=== PATIENT | female | born 1955 | race Caucasian/White ===

== ENCOUNTER 2020-11-30 15:10 | Outpatient (CLI) | payer OTHER, SELFPAY ==
--- NOTE | 2020-11-30 15:30 | MM_ITS ---
WS: [id number] BILATERAL SCREENING DIGITAL MAMMOGRAM WITH CAD HISTORY: Z12.39 - Encounter for other screening for malignant neoplasm... COMPARISON: None available. Bilateral CC and MLO views submitted. Computer aided detection analyzed. Breast composition: There are scattered areas of fibroglandular density. No suspicious masses, microc alcifications or architectural distortion. Benign calcification lateral LEFT breast. MM/[place] [id number] IMPRESSION: BI-RADS: 2-Benign FOLLOW UP: 1 Year Follow-up
== END 2020-11-30 15:11 | disposition home or self-care (01) ==
LOC: RADSHAW 15:13
PROVIDERS: Family Provider Physician Assistant Medical; PCP Nurse Practitioner Family; Visit Provider Nurse Practitioner Family
DX: Z12.31 Encounter for screening mammogram for malignant neoplasm of breast (principal)
CPT/HCPCS: 77067

== ENCOUNTER → 2023-04-21 09:30 | Outpatient (BNVA) | payer OTHER, SELFPAY | PROVIDERS: Family Provider Physician Assistant Medical; Visit Provider Nurse Practitioner Family | DX: N81.9 Female genital prolapse, unspecified (principal); R32 Unspecified urinary incontinence; Z13.6 Encounter for screening for cardiovascular disorders; Z79.899 Other long term (current) drug therapy; E55.9 Vitamin D deficiency, unspecified | CPT/HCPCS: 80053; 80061; 81003; 82306; 83036; 84443; 85025; 87086 ==

== ENCOUNTER → 2023-07-04 11:11 | Outpatient (BNVA) | payer OTHER, SELFPAY | PROVIDERS: Family Provider Physician Assistant Medical; PCP Nurse Practitioner Family; Visit Provider Nurse Practitioner Family | DX: J18.9 Pneumonia, unspecified organism (principal) | CPT/HCPCS: 71046 ==

== ENCOUNTER 2023-08-07 10:50 | Outpatient (CLI) | payer OTHER, SELFPAY | END 2023-08-07 10:51 | disposition home or self-care (01) | PROVIDERS: PCP Nurse Practitioner Family; Visit Provider Nurse Practitioner Family | DX: J44.9 Chronic obstructive pulmonary disease, unspecified (principal); F17.210 Nicotine dependence, cigarettes, uncomplicated; R94.2 Abnormal results of pulmonary function studies | CPT/HCPCS: 94010; 94726; 94729 ==

== ENCOUNTER 2023-08-14 11:50 | Outpatient (CLI) | payer OTHER, MEDICARE, SELFPAY ==
--- NOTE | 2023-08-14 12:45 | CT_ITS ---
WS: [id number] LDCT LUNG CANCER SCREENING TECHNIQUE: Noncontrast CT of the chest with coronal and sagittal reformatted images. CLINICAL INFORMATION: Cancer Screen COMPARISON: None. DLP: 67.41 mGy.cm DIvol: Mean CTDIvol: 1.40 (mGy) All CT scans at [facility] use at least one of these dose optimization techniques: automat ed exposure control; mA and/or kV adjustment per patient size (includes targeted exams where dose is matched to clinical indication); or iterative reconstruction. FINDINGS: Normal caliber thoracic aorta. Aortic calcification. Mild coronary calcification. Adrenal glands are normal. Normal GE junction. Moderate thoracic kyphosis. Hypertrophic changes thora cic spine. Suspicious spiculated mass RIGHT middle lobe abutting the fissure. Consolidative mass pasquale ures approximately 3.3 x 1.9 cm. Surrounding irregular nodular and lobulated margins. Recommend furth er evaluation with bronchoscopy. Additional areas of nodularity extend along the RIGHT hilum. Thicken ing of the adjacent fissure. Masslike RIGHT hilar lymphadenopathy. Additional indeterminate nodule superior segment LEFT lower lobe measuring 6.5 mm. A few tiny subpleu ral nodules LEFT upper lobe. Slight hazy groundglass opacity RIGHT lower lobe laterally is nonspecifi c. Fibrosis RIGHT lower lobe medially. Additional irregular nodule RIGHT upper lobe along the fissure measuring 7 mm. IMPRESSION: Irregular spiculated mass RIGHT middle lobe with surrounding nodularity highly suspicious for neoplasm. Recommend further evaluation with bronchoscopy. Masslike RIGHT hilar lymphadenopathy w ith additional nodularity about the RIGHT hilum. Also consider PET/CT in addition to bronchoscopy. CT/CT lung screening [id number] LUNG-RADS: 4XS-Suspicious with Significant Findings FOLLOW UP: See Report
== END 2023-08-14 11:51 | disposition home or self-care (01) ==
LOC: RAD 11:51
PROVIDERS: PCP Nurse Practitioner Family; Visit Provider Internal Medicine Pulmonary Disease
DX: Z12.2 Encounter for screening for malignant neoplasm of respiratory organs (principal); R91.8 Other nonspecific abnormal finding of lung field; R59.0 Localized enlarged lymph nodes; F17.210 Nicotine dependence, cigarettes, uncomplicated
CPT/HCPCS: 71271

== ENCOUNTER 2023-09-30 12:08 | Outpatient (CLI) | payer OTHER, SELFPAY ==
--- NOTE | 2023-09-30 13:00 | PETR_ITS ---
PROCEDURE INFORMATION: Exam: PET/CT Skull Base to Mid-thigh Exam date and time: 09/30/2023 1:34 PM Age: 68 years old Clinical indication: Abnormal findings on CT chest lung cancer screening on 08/14/2023; Irregular spiculated mass right middle lobe with surrounding nodularity highly. Suspicious for neoplasm. Recommend further evaluation with bronchoscopy. Masslike right hilar. Lymphadenopathy with additional nodularity about the right hilum. Also consider pet/ct in addition. LABS AND CLINICAL REPORTS: Glucose: 87 mg/dl Treatment strategy for malignancy (PET staging): Initial Staging (PI) TECHNIQUE: Imaging protocol: Following at least four-hour fasting and following the injection of radiopharmaceutical, low dose CT images were obtained. Then, PET images were obtained. Attenuation corrected images were constructed using the CT scan. Fused images of PET and CT were reviewed. The standardized uptake values (SUV) reported below are maximum values within a region of interest, expressed in gm/ml. Exam includes orbital meatal line to mid-thigh. Radiopharmaceutical: 14.84 mCi F-18 FDG (Fluorodeoxyglucose), IV. Time of imaging post radiopharmaceutical administration: 1 hour Injection site: Right hand COMPARISON: CT lung cancer screening 08/14/2023 FINDINGS: Brain: Visualized brain has normal physiologic uptake. Pharynx: No abnormal uptake. Larynx: No abnormal uptake. Lungs, pleura and trachea: FDG avid opacity in the right middle lobe measures about 3 x 2 cm/7.2 SUV. A cluster of small perihilar nodules in the more central location in the right middle lobe measure up to 0.7 cm in thickness with the highest uptake of 2.8 SUV. There is small FDG avid nodule in the right upper lobe on axial image 74 measuring 0.6 cm/3.1 SUV. 0.5 cm nodule in the superior segment of the left lower lobe on axial image 67 shows low-grade uptake of 1 SUV. No pleural effusion. Heart: Normal physiologic uptake. There is no cardiomegaly. Mild coronary artery calcification is present. There is no pericardial effusion. Mediastinal space: No abnormal uptake. Liver: No abnormal uptake. Gallbladder and bile ducts: No abnormal uptake. Pancreas: No abnormal uptake. Spleen: No abnormal uptake. No splenomegaly. Adrenal glands: No abnormal uptake. No nodules. Kidneys and ureters: Normal physiologic uptake. No hydronephrosis. Stomach and bowel: Increased uptake (up to 7 SUV) in the distal gastric body with no corresponding CT abnormality is indeterminate, may be benign. No abnormal uptake in the bowel. Intraperitoneal and retroperitoneal spaces: No abnormal uptake. No ascites. Urinary bladder: Normal physiologic uptake. Reproductive: No abnormal uptake. The uterus is absent post surgically. Vasculature: No abnormal uptake. No aortic aneurysm. Lymph nodes: No abnormal uptake. No lymphadenopathy in the head, neck, chest, abdomen, pelvis, and extremities. Bones/joints: No abnormal uptake in the visualized axial and appendicular skeleton. Mild grade 1 degenerative anterolisthesis of L4 associated with L4-L5 facet arthropathy. Soft tissues: No abnormal uptake in the visualized head, neck, chest, abdomen, pelvis, and extremities. PET/PET [facility] INITIAL [id number] IMPRESSION: FDG avid findings in the right lung concerning for malignancy including about 3 x 2 cm lesion in the right middle lobe with uptake of 7.2 SUV, a few perihilar right middle lobe subcentimeter lung nodules with low-grade uptake of 2.8 SUV, and a separate 0.6 cm right upper lobe nodule with uptake of 3.1 SUV. No abnormal uptake in the right hilum. Non-specific non masslike linear area of increased uptake in the distal gastric body with no corresponding CT abnormality. Otherwise no abnormal FDG uptake outside of the chest.
== END 2023-09-30 12:09 | disposition home or self-care (01) ==
LOC: RAD 12:09
PROVIDERS: PCP Nurse Practitioner Family; Visit Provider Internal Medicine Pulmonary Disease
DX: R93.89 Abnormal findings on diagnostic imaging of other specified body structures (principal)
CPT/HCPCS: 78815; A9552

== ENCOUNTER 2023-10-21 07:30 | Day surgery (SDC) | payer OTHER, SELFPAY ==
[2023-10-21] VITALS (13 sets, daily range): BP systolic 137–208; BP diastolic 56–107; PULSE 68–110; RESP 16–21; TEMP 36.1–36.4; O2SAT 92–98; BMI 32.1
--- NOTE | 2023-10-21 07:41 | CT_ITS ---
WS: [id number] CT chest ION (PULM ONLY) [id number] HISTORY: for bronchoscopy biopsies TECHNIQUE: Axial imaging performed through the thorax.. All CT scans at [facility] use at [facility] one of these dose optimization techniques: automated exposure control; mA and/or kV adjustment per patient size (includes targeted exams where dose is matched to clinical indication); or iterative re construction. CONTRAST: None. DLP: 407.91 mGy COMPARISON: 08/14/2023, PET/CT 09/30/2023 High resolution imaging during inspiration prior to navigational bronchoscopy. Reidentified is a spic ulated mass in the RIGHT middle lobe with tethering and pleural tagging extending towards the hilum. Mild RIGHT hilar bronchial wall thickening. No change in the slightly spiculated nodule RIGHT upper l obe and superior segment LEFT lower lobe. CT/CT chest ION (PULM ONLY) [id number] IMPRESSION: Imaging provided for navigational bronchoscopy.
--- NOTE | 2023-10-21 08:06 | P.ANESASSM_ITS ---
Pre-Anesthetic Assessment Height/Weight: Height 1.57 m Operation Date: 10/21/23 09:00 Proposed Procedures p Ion Robotic Assisted Bronchoscopy ION 56458, 46159, 93257, 66758, 41376, 37452, 73496, 12597, 79036, 92135, 24364, 48631, 91967, 00126N34.8(Not Applicable) - Velasquez Brown MD s Ebus(Not Applicable) - Velasquez Brown MD Social Tobacco and No alcohol Exam alert, oriented x 3, clear to auscultation bilaterally and regular rate & rhythm Airway Submandibular: within normal limits Cervical ROM: within normal limits Mallampati: Class II Pulmonary Chronic Obstructive Pulmonary Disease, Cough and Exertional Dyspnea Anesthetic Plan ASA status: 3 Anesthesia: General Medications/Allergies Home Medications Medication Instructions Recorded Confirmed Last Taken Type albuterol sulfate 1.25 mg/3 mL 1.25 mg (3 mL) inhalation Q6H PRN 06/10/23 10/17/23 10/16/23 Rx solution for nebulization bronchospasm 30 days #90 mL albuterol sulfate 90 mcg/actuation 2 puff inhalation Q6H PRN 10/08/23 10/17/23 10/16/23 History aerosol inhaler Shortness Of Breath varenicline 0.5 mg (11)-1 mg (42) See Rx Instructions PO PER PKG DIR 10/08/23 10/17/23 Unknown Rx tablets in a dose pack (Chantix #53 ea Starting Month Box) Allergies Allergy/AdvReac Type Severity Reaction Status Date / Time No Known Allergies Allergy Verified 10/17/23 12:03 [facility] Anesthesia Medical History Pneumonia Routine lab draw Urinary incontinence concurrent with and due to female genital prolapse Encounter for screening for cardiovascular disorders Breast cancer screening by mammogram Lower respiratory infection COPD (chronic obstructive pulmonary disease) Arthritis Colon cancer screening Breast cancer screening other than mammogram Screening for hypertension Medication management Fatigue Vitamin D deficiency Nausea and vomiting Surgical History S/P total hysterectomy Status post hysterectomy Family History Other CAD (coronary artery disease) Cancer Lung disease Stroke Social History Smoking and tobacco/nicotine status: current every day tobacco/nicotine user cigarettes Packs smoked per day: 1 Years cigarettes smoked: 55 [ Other cigarette details: Started at age 54] Alcohol intake: never Substance/Drug Use: never Data Anesthesia Cardiac Studies: No Data to Display
[2023-10-21] MEDS: sodium chloride 0.9% 1,000 ML 30 ML IV (08:50)
--- NOTE | 2023-10-21 08:52 | W.PM.OPSUD ---
Surgery/Procedure H&P Update DATE OF PROCEDURE: October 21, 2023 DATE H&P PERFORMED: 10/08/23 H&P UPDATE INFORMATION: I have reviewed H&P completed within last 30 days and No changes to prior documentation PREOP DIAGNOSIS: Suspected lung malignancy PRIMARY INDICATION FOR PROCEDURE: Patient had imaging evidence of right middle lobe lesion which is also PET positive. There is also small superior segment left lower lobe nodule. PLANNED PROCEDURE: Operation Date: 10/21/23 09:00 Proposed Procedures p Ion Robotic Assisted Bronchoscopy ION 22439, 94077, 48417, 19261, 33321, 89321, 82533, 32629, 98912, 68291, 20734, 71819, 58037, 49873V30.8(Not Applicable) - Velasquez Brown MD s Ebus(Not Applicable) - Velasquez Brown MD
--- NOTE | 2023-10-21 09:03 | SC_ITS ---
WS: [id number] EXAMINATION: C-arm FL for Bronchoscopy ORDER DATE: 10/21/2023 9:03 AM REASON FOR EXAM: ion COMPARISON: None available. FLUOROSCOPY TIME: 91 seconds # OF SPOT FILMS: 2 FINDINGS: Images demonstrate bronchoscope at the medial margin of the previously demonstrated right lung mass. SC/C-arm FL for Bronchoscopy IMPRESSION: Localization for bronchoscopic biopsy right lung mass.
[2023-10-21] MEDS: lidocaine 1% INJ 10 mL (per mL) XX (09:14)
--- NOTE | 2023-10-21 10:17 | XRR_ITS ---
PROCEDURE INFORMATION: Exam: XR Chest Exam date and time: 10/21/2023 10:21 AM Age: 68 years old Clinical indication: Device placement; Other: Post bronch; Additional info: Post ion TECHNIQUE: Imaging protocol: Radiologic exam of the chest. Views: 1 view. COMPARISON: CT chest ION (PULM ONLY) [id number] 21/10/2023 07:55 FINDINGS: Tubes, catheters and devices: There is an endotracheal tube in good position about 3 cm above the level of the davina. Lungs: The patient's known right mid lung mass is again identified. No new infiltrates or masses are visible. Pleural spaces: No pleural effusions. No pneumothorax. Heart/Mediastinum: Unremarkable. No cardiomegaly. Bones/joints: Unremarkable. XR/XR chest 1V portable [id number] IMPRESSION: 1. The endotracheal tube is in good position 2. Relatively stable appearing right mid lung mass
--- NOTE | 2023-10-21 10:36 | PM.OP ---
Operative Report Date of procedure: October 21, 2023 Pre-op diagnosis: Suspected lung malignancy Post-op diagnosis: Suspected lung malignancy Procedure done: -Dx Bronchoscope w/Washings or airway inspection -Dx Bronchoscope w/BAL -Bronch with computer image guided Navigational Bronchoscopy -Bronchoscopy w/Transbronchial lung biopsy(s), single lobe using forceps -Bronchoscopy w/Transbronchial needle aspiration biopsy(s), tracheal, main stem, and/or lobar bronchus -w/Transbronchial needle aspiration biopsy(s), each additional lobe (list separately, in addition to code for primary procedure) -Bronchoscopy w/ therapeutic aspiration of the tracheobronchial tree (clearance of airway secretions, removal of mucus plugs) Surgeon: Velasquez Brown MD Brief History: Ms. donato Kaufman is a 68-year-old female with past medical history of COPD, chronic smoker referred by Ms. Alejandro Donaldson for pulmonary clearance for bladder sling surgery at [facility]. When she went to see her PCP Ms. ALEJANDRO donaldson-for surgical clearance-her saturations were low in clinic. And hence referred to pulmonary clinic. She is complaining of SOB with exertion only. Easily exerted. Low-dose CT 08/14/2023: Showed suspicious spiculated mass RIGHT middle lobe abutting the fissure. Consolidative mass measures approximately 3.3 x 1.9 cm. Surrounding irregular nodular and lobulated margins.Additional areas of nodularity extend along the RIGHT hilum. Thickening of the adjacent fissure. Masslike RIGHT hilar lymphadenopathy. Additional indeterminate nodule superior segment LEFT lower lobe measuring 6.5 mm. A few tiny subpleural nodules LEFT upper lobe. Slight hazy groundglass opacity RIGHT lower lobe laterally is nonspecific. Fibrosis RIGHT lower lobe medially. Additional irregular nodule RIGHT upper lobe along the fissure measuring 7 mm. Subsequently she had a PET CT scan 10/01/2023: FDG avid findings in the right lung concerning for malignancy including about 3 x 2 cm lesion in the right middle lobe with uptake of 7.2 SUV, a few perihilar right middle lobe subcentimeter lung nodules with low-grade uptake of 2.8 SUV, and a separate 0.6 cm right upper lobe nodule with uptake of 3.1 SUV. 0.5 cm nodule in the superior segment of the left lower lobe on axial image 67 shows low-grade uptake of 1 SUV.No abnormal uptake in the right hilum. She was prescribed Trelegy inhaler which she was not using. She is using albuterol as needed and more frequently. She is smoking 1 ppd, hx of 1 ppd X 55 years. I have discussed with patient that given significant smoking history-the lesion in the lung is highly suspicious for malignancy and we need tissue diagnosis to confirm. For that I discussed doing robotic navigational guided biopsy of suspicious lesion as well as endobronchial ultrasound-guided surveillance of hilar/mediastinal lymph nodes. I have explained about the complications like pneumothorax which may require chest tube placement. Bleeding is another possibility, majority of times the bleeding is controlled with instillation of cold saline or diluted epinephrine. There is also a very small chance of missing the lesion due to technical factors which may result in repeating the procedure. These are rare possibilities with current software combined with using live radial ultrasound,. Patient verbalized understanding for the indication of the procedure, nature of the procedure, alternatives, complications, benefits and agreed to proceed. Procedure: -Dx Bronchoscope w/Washings or airway inspection -Dx Bronchoscope w/BAL -Bronch with computer image guided Navigational Bronchoscopy -Bronchoscopy w/Transbronchial lung biopsy(s), single lobe using forceps -Bronchoscopy w/Transbronchial needle aspiration biopsy(s), tracheal, main stem, and/or lobar bronchus -w/Transbronchial needle aspiration biopsy(s), each additional lobe (list separately, in addition to code for primary procedure) -Bronchoscopy w/ therapeutic aspiration of the tracheobronchial tree (clearance of airway secretions, removal of mucus plugs) ION ROBOTIC BRONCHOSCOPY NOTE Pre-procedure Verification: Prior to the procedure, the patient's identity was verified by full name, date of and medical record number. The patient's identity was verified on all pertinent medical records. Also prior to the procedure, a History and Physical was performed, and patient medications, allergies and sensitivities were reviewed. The patient's tolerance of previous anesthesia was reviewed. The risks and benefits of the procedure and the sedation options and risks were discussed with the patient. All questions were answered and informed consent was obtained. Planning: Using the [employer] planning software, this patient?s preoperative CT was loaded onto the system and then target and pathway mapping was performed. This was all done prior to the start of the procedure and appropriate plan verified prior to induction. Anesthesia: General anesthesia was used. Please see anesthesiology documentation for full details. A modified LNVP/[place] Protocol was used for robotic bronchoscopy with rapid Intubation, recruitment maneuvers, Tidal Volume around 8-10mL/Kg [place] Body Weight, and PEEP 10-15 as feasible. Time-Out: Prior to the start of the procedure, the patient's identification, proposed procedure, accurate signed consent, correctly labeled images and records, and need for prophylactic antibiotics were verified by the physician, the nurse, the anesthesiologist and the oven attendant in the procedure room. Procedural Details: After obtaining informed consent, The procedure was accomplished without difficulty. The patient tolerated the procedure well. Patient preparation: Patient was placed under general anesthesia. An 8.5 ETT was placed for bronchoscopy. The larynx and vocal cords were not visualized. The trachea was anatomically normal The right sided was anatomically normal without endobronchial lesions. There were significant thin clear secretions. The left sided airway was anatomically normal without endobronchial lesions. There were significant thin clear secretions Therapeutic aspiration of the airways, initial encounter, was performed at the right bronchial tree. The therapeutic bronchoscope was then removed. We communicated with the anesthesia team to ensure proper ventilator settings for optimal peripheral bronchoscopy. FIRST LOBE: The Ion Shape Sensing Robotic Assisted Bronchoscope was brought into the field and the process of registration was carried out. The guide catheter was used for peripheral navigational bronchoscopy using the planned pathway into the lateral segment of right middle lobe lesion and was able to be wedged peripherally at a distance of 1 mm away from the target. We locked the catheter position in, and removed the vision probe. We introduced the radial EBUS probe and obtained an good concentric signal [id number] image location relative to the lesion in the same lobe. We confirmed our location with a fluoroscopic C-arm. We then removed the R-EBUS and introduced the biopsy tools starting with a 19 G ION bronchoscopic peripheral needle for Transbronchial Needle Aspirations (TBNA). The first pass was not sent for Rapid On Site Evaluation (RAINE) as we do not have onsite pathology. We continued more biopsies in a cloud format. Transbronchial biopsies of right middle lobe lesion were using forceps. Transbronchial biopsy technique was selected because the sampling site was not visible endoscopically. The sampling device penetrated the full thickness of the bronchial wall to obtain the biopsy of lung tissue. 7 biopsy passes were performed, and the same number of biopsy samples were obtained. Finally, we used a 20 cc syringe filled with normal saline connected to the proximal portion of the ION catheter and slowly injected; pain 15 cc and aspirated the contents for a bronchial alveolar lavage of the lateral segment of right middle lobe. The return was cloudy and blood tinged 13 cc . SECOND LOBE/SITE: Superior segment left lower lobe nodule Next, the vision probe was reintroduced into the guide catheter. This was used to navigate using the planned pathway into the superior segment left lower lobe lesion was able to be wedged peripherally at a distance of greater than 30 mm away from the target. The catheter could not be advanced further due to the angle and kept dislodging the bronchoscope. We locked the catheter position in, and removed the vision probe.We introduced the radial EBUS probe and obtained a week eccentric signal. We confirmed our location with fluoroscopy C-arm. We then removed the R-EBUS and introduced 23 G ION bronchoscopic peripheral needle for Transbronchial Needle Aspirations (TBNA). We could not obtain any tissue. Hence I did not proceed with any further biopsies. At this point and after confirming the absence of bleeding, we removed the channel. Minimal blood residue was cleared from the airway and the peripheral navigation portion of the procedure was concluded. Empiric cold saline was instilled through the catheter and tamponade held for 1-5 minutes. Next, we turned our attention to linear EBUS staging. However after removal of navigational bronchoscope-patient peak pressures increased and the concern was if she has developed severe bronchospasm versus pneumothorax. Immediately we performed a chest x-ray which did not show any pneumothorax. However patient was switched to pressure support ventilation and she was not giving enough tidal volumes. I have aborted during interval virtual ultrasound surveillance. At this point patient was extubated and was sent to postop area. Samples: A. Right middle lobe lesion 1. Total of 7 passes were made using needle aspiration ; we do not have onsite pathology and so all the material was placed in formalin for histopathology 2. Targeting the same area 7 passes were made using forceps ; we do not have onsite pathology and so all the material was placed in formalin for histopathology 3. Bronchoscope was wedged at the entrance of the lateral segment of right middle lobe, 15 mL of saline was instilled and returned 13 mL of bronchoalveolar lavage . The fluid was mixed with blood and specks of tissue. Samples for cell count, cytology, cultures, fungal cultures B. Superior segment left lower lobe nodule-no tissue obtained 1. 1 pass with 23-gauge needle aspiration-unable to get sample Complications: None.The patient was extubated and brought to the PACU in stable condition. Postprocedure chest x-ray: There is no evidence of pneumothorax Disposition: Patient can be discharged home in stable condition. Pt, and her are aware that I am going to call them to update final biopsy results once available.
--- NOTE | 2023-10-21 11:11 | XR_ITS ---
WS: [id number] XR chest 1V portable [id number] REASON FOR EXAM: second cxr post ION FINDINGS: The post bronchoscopic biopsy of the right lung mass demonstrates no pneumothorax. Vaguely increased density in the lower lung field appears to represent atelectasis in the right lower lobe. No significant pleural effusion. XR/XR chest 1V portable [id number] IMPRESSION: Post bronchoscopic biopsy with no pneumothorax. Atelectasis in the right lower lung.
[2023-10-21 11:58] LABS: Apprearance, Bronch Wash Cloudy (CLEAR); Color, Bronc Wash Slight Pink; Cyto Order Verification Order Verified; PATH Referral Yes
--- NOTE | 2023-10-21 12:44 | ANE.PACU2 ---
Inpatient post-anesthesia follow up: Vital signs: Temperature 97.6 F Pulse Rate 70 Respiratory Rate 20 Blood Pressure 137/72 Pulse Oximetry 94 Oxygen Delivery Me thod Room Air Oxygen Flow Rate 2 Fraction of Inspir ed Oxygen Hydration adequate: Yes Nausea and vomiting: No Pain level: 1 Mental status: Baseline
[2023-10-21 13:26] LABS: Total Cells Counted Bronch 200
[2023-10-30 10:28] LABS: PD-L1 (Clone 22C3) by IHC BBPL See Report
[2023-10-30 10:30] LABS: PD-L1 (Clone 22C3) by IHC BBPL See Report
== END 2023-10-21 12:05 | disposition home or self-care (01) ==
PROVIDERS: PCP Nurse Practitioner Family; Visit Provider Internal Medicine Pulmonary Disease
PROC: 0BJ08ZZ Inspection of Tracheobronchial Tree, Via Natural or Artificial Opening Endoscopic (ICD-10-PCS; CPT 31622; principal; 2023-10-21 09:00)
DX: C34.2 Malignant neoplasm of middle lobe, bronchus or lung (principal); J44.9 Chronic obstructive pulmonary disease, unspecified; M19.90 Unspecified osteoarthritis, unspecified site; F17.210 Nicotine dependence, cigarettes, uncomplicated; Z98.890 Other specified postprocedural states
CPT/HCPCS: 31624; 31627; 31628; 31629; 31633; 31645; 71045; 71250; 76000; 80503; 87070; 87102; 87205; 87206; 88112; 88305; 88341; 88342; 89050; A7015; J1100; J2405; J2704; J2710; J3010; J3490; J3535; J7030

== ENCOUNTER → 2023-11-24 09:59 | Outpatient (BNVA) | payer OTHER, SELFPAY | PROVIDERS: PCP Nurse Practitioner Family; Visit Provider Nurse Practitioner Family | DX: J44.1 Chronic obstructive pulmonary disease with (acute) exacerbation (principal) | CPT/HCPCS: 71046 ==

== ENCOUNTER → 2024-09-07 15:53 | Outpatient (BNVA) | payer OTHER, SELFPAY | PROVIDERS: PCP Nurse Practitioner Family; Visit Provider Nurse Practitioner Family | DX: J18.9 Pneumonia, unspecified organism (principal); J44.9 Chronic obstructive pulmonary disease, unspecified | CPT/HCPCS: 71046 ==

== ENCOUNTER → 2025-06-03 08:13 | Outpatient (BNVA) | payer OTHER, SELFPAY | PROVIDERS: PCP Nurse Practitioner Family; Visit Provider Nurse Practitioner Family | DX: C34.91 Malignant neoplasm of unspecified part of right bronchus or lung (principal); Z51.11 Encounter for antineoplastic chemotherapy | CPT/HCPCS: 71046 ==